=== PATIENT | female | born 1995 | race African-American/Black ===

== ENCOUNTER 2018-08-27 16:33 | Emergency (ER) | payer OTHER ==
[~2018-08-27] VITALS: Ht 165.1 cm; Wt 85.9 kg
[2018-08-27] MEDS ORDERED: INHALER IH (17:00)
[2018-08-27] MEDS ORDERED: ACYC200C PO (17:00)
[2018-08-27 18:11] LABS: APPEARANCE,URINE CLEAR (CLEAR); BILIRUBIN,URINE NEGATIVE (NEGATIVE); GLUCOSE, URINE (UA) NEGATIVE (NEGATIVE); KETONES,URINE NEGATIVE (NEGATIVE); LEUKOCYTE ESTERASE ,URINE NEGATIVE (NEGATIVE); NITRATE,URINE NEGATIVE (NEGATIVE); OCCULT BLOOD,URINE NEGATIVE (NEGATIVE); PROTEIN,URINE NEGATIVE (NEGATIVE); UROBILINOGEN,URINE 0.2 mg/dL (<=1.0)
[2018-08-27 18:33] LABS: BASOPHILS % (AUTO) 0.8 % (0.0-2.0); EOSINOPHILS % (AUTO) 1.2 % (1.0-6.0); HEMATOCRIT 41.6 % (36-46); HEMOGLOBIN 13.8 g/dL (12.0-16.0); LYMPHOCYTES # (AUTO) 1.7 K/uL (1.0-4.8); LYMPHOCYTES % (AUTO) 30.7 % (22.0-44.0); MEAN CORPUSCULAR HEMOGLOBIN 30.1 pg (26.0-34.0); MEAN CORPUSCULAR HGB CONC 33.1 G/dL (31.0-37.0); MEAN CORPUSCULAR VOLUME 91 fL (80-100); MONOCYTES # (AUTO) 0.5 K/uL (0.1-1.0); MONOCYTES % (AUTO) 9.6 % (2.0-9.0); NEUTROPHILS # (AUTO) 3.3 K/uL (1.8-7.7); NEUTROPHILS % (AUTO) 57.7 % (40.0-70.0); PLATELET COUNT (AUTO) 277 K/uL (150-450); RED BLOOD CELL COUNT(AUTO) 4.59 MIL/uL (4.00-5.20); RED CELL DISTRIBUTION WIDTH 13.2 % (11.5-14.5)
[2018-08-27 18:47] LABS: ANION GAP 8 mmol/L (8-16); CALCIUM, TOTAL 9.6 mg/dL (8.8-10.5); CARBON DIOXIDE 29 mmol/L (22-29); CHLORIDE 102 mmol/L (98-107); CREATININE 0.76 mg/dL (0.60-1.30); GLOMERULAR FILTR. RATE CALC > 60 mL/min (>60); GLUCOSE,RANDOM 75 mg/dL (70-110); POTASSIUM 3.8 mmol/L (3.5-5.1); SODIUM SERUM 139 mmol/L (136-145); UREA NITROGEN, BLOOD 11 mg/dL (7-18)
[2018-08-27 19:01] LABS: ALANINE AMINOTRANSFERASE 37 U/L (12-78); ALBUMIN 3.9 g/dL (3.4-5.0); ALKALINE PHOSPHATASE 71 U/L (46-116); ASPARTATE AMINOTRANSFERASE 22 U/L (15-37); BILIRUBIN,TOTAL 0.4 mg/dL (0.1-1.0); HCG,QUANTITATIVE < 1 mIU/mL (0-6); LIPASE 168 U/L (73-393); TOTAL PROTEIN, SERUM 8.2 g/dL (6.4-8.2)
[2018-08-27] MEDS ORDERED: SULFAMETHOX/TRIMETH DS 800-160 MG/TABLET PO ONE (21:45)
[2018-08-27] MEDS ORDERED: IBUPROFEN 600 MG TABLET PO ONE (21:45)
[2018-08-27 21:49] VITALS: BP 124/78
== END 2018-08-27 21:56 | disposition home or self-care (01) ==
LOC: EMS 16:35
DX: L02.32 Furuncle of buttock (principal); F12.90 Cannabis use, unspecified, uncomplicated; J45.909 Unspecified asthma, uncomplicated; Z79.899 Other long term (current) drug therapy
CPT/HCPCS: 76856